=== PATIENT | female | born 1970 | race African-American/Black ===

== ENCOUNTER → 2016-11-04 | Outpatient (CLI) | payer BC ==
[~2016-11-04] MED LIST: AMLODIPINE BES2.5 MG PO; BENZONATATE PO; CLARITIN10 M3 PO; GABAPENTIN300 M2 PO; LORTAB 7.5-5001 TAB PO; NORCO PO; PAXIL PO; ULTRAM; ZEGERID40 MG/PKT PO
--- NOTE | ~2016-11-04 | EKG ---
PATIENT: FRANK LOAIZA UNIT #: [id number] Ventricular Rate: 75 BPM Atrial Rate: 75 BPM P-R Interval: 154 ms QRS Duration: 76 ms Q-T Interval: 364 ms QTC Calculation(Bezet): 406 ms P [place]: 45 degrees Calculated R [place]: 31 degrees Calculated T [place]: 21 degrees Diagnosis Line: Normal sinus rhythm Diagnosis Line: Normal ECG Diagnosis Line: When compared with ECG of 06-NOV-2014 12:25, Diagnosis Line: No significant change was found Diagnosis Line: Confirmed by ALLY QUINONES MD ([id number]) on 11/04/2016 Diagnosis Line: 6:09:07 PM INTERPRETING MD: JONI PEREZ
== END | disposition home or self-care (01) ==
LOC: CAMB 09:00
DX: Z01.810 Encounter for preprocedural cardiovascular examination (principal); G72.9 Myopathy, unspecified
CPT/HCPCS: 93005

== ENCOUNTER → 2016-11-12 | Day surgery (SDC) | payer BC ==
--- NOTE | ~2016-11-12 | OR ---
Unit #: [id number] #: [id number] Patient: FRANK LOAIZA [id number] [address] [place], [place] [address] [id number] MR#: [id number] NAME: FRANK LOAIZA ROOM: Date of Procedure: 11/12/2016 Admission Date: 11/12/2016 Surgeon: Ronan Mensah Jr., M.D. : 1970 Attending Physician: Ronan Mensah Jr., M.D. Primary Care Physician: Maxwell De Santiago Jr., M.D. OPERATIVE REPORT INDICATIONS FOR PROCEDURE The patient is a 46-year-old black female, who has been having severe myalgias off and on for some time, but recently these have become much progressively worse and she is brought in this time for muscle biopsy to rule out some form of muscular disease. She understands the procedure including the risks, including that of bleeding, infection, poor healing, and chronic pain, and consents. PREOPERATIVE DIAGNOSIS Myalgias, etiology? POSTOPERATIVE DIAGNOSIS Myalgias, etiology? noting normal appearing muscle. ANESTHESIA MAC anesthesia with 1% Xylocaine without epinephrine locally. PROCEDURE PERFORMED Left quadriceps muscle biopsy. DESCRIPTION OF PROCEDURE The patient was positioned in supine position. After being prepped and draped in routine fashion, she was given MAC anesthesia and then locally anesthetized with 1% Xylocaine without epinephrine. A vertical incision approximately an inch and a half in length was made over the left anterior thigh. This was carried down through subcutaneous tissue down to the fascia of the muscle. The fascia was then incised with a #10 blade scalpel and there was normal-appearing muscle beneath it. A 3-0 Vicryl stitch was used to secure a portion of the muscle, which was then excised with a #10 blade scalpel. After it was removed, it was sent to Pathology and the pathologist did report that there was enough tissue for diagnosis. After hemostasis was achieved with Bovie cautery, the fascia was closed with a continuous 2-0 Vicryl suture. Subcutaneous tissue was approximated with interrupted 3-0 Vicryl sutures. Skin edges were approximated with stainless-steel skin clips and skin stapling device. Sterile dressings were applied externally. Estimated blood loss less than 10 mL. The patient received less than 1000 mL crystalloid solution during the procedure. Sponges and instrument counts were correct x3. No drains were used. No complications. The patient was discharged in satisfactory condition. Unit #: [id number] #: [id number] Patient: FRANK LOAIZA Dictated by... Ronan Mensah Jr., M.D. JMB/sunil TD: 11/12/2016 18:54 JOB #: [id number] CC: Maxwell De Santiago Jr., M.D. OPERATIVE REPORT Page 1 of 1 X Ronan Mensah MD X PROCEDURE OPERATIVE NOTE
[2016-11-12 08:31] LABS: BUN/CREATININE RATIO 15.71; CREATININE SERUM 0.7 mg/dL (0.6-1.4); GLOM FILT RATE Estimated 120.4 mL/min (>60)
== END | disposition home or self-care (01) ==
LOC: CSUR 07:15
PROVIDERS: Surgery
DX: M79.1 Myalgia (principal); I10 Essential (primary) hypertension; E78.5 Hyperlipidemia, unspecified; G43.909 Migraine, unspecified, not intractable, without status migrainosus; E66.9 Obesity, unspecified; F41.9 Anxiety disorder, unspecified; F17.210 Nicotine dependence, cigarettes, uncomplicated; M19.90 Unspecified osteoarthritis, unspecified site; F32.9 Major depressive disorder, single episode, unspecified; G47.30 Sleep apnea, unspecified; Z87.01 Personal history of pneumonia (recurrent); Z68.34 Body mass index [BMI] 34.0-34.9, adult; Z79.891 Long term (current) use of opiate analgesic; Z79.899 Other long term (current) drug therapy; Z90.49 Acquired absence of other specified parts of digestive tract; Z98.890 Other specified postprocedural states
CPT/HCPCS: 80048; 84703; 88300; J1885; J2250; J2405; J3010